=== PATIENT | female | born 1970 | race Caucasian/White ===

== ENCOUNTER 2016-06-12 06:06 | Day surgery (SDC) | payer BC ==
[~2016-06-12] VITALS: Ht 175.3 cm; Wt 69.0 kg
[~2016-06-12 06:06] MED LIST: LISI2.5T PO; OXYC10TA6 PO; SIMV40TA3 PO
[2016-06-12 06:44] VITALS: BP 130/85
[2016-06-12] MEDS ORDERED: LACTATED RINGERS 1,000 ML IV SCH (06:47)
[2016-06-12] MEDS ORDERED: LIDOCAINE 1%, 2ML SQ PRN (07:00)
[2016-06-12] MEDS ORDERED: MIDAZOLAM 1 MG/ML, 2ML ONE (07:09)
[2016-06-12] MEDS ORDERED: FENTANYL PF 250 MCG/5ML ONE (07:09)
[2016-06-12] MEDS ORDERED: CEFAZOLIN 1,000 MG ONE (07:25)
[2016-06-12] MEDS ORDERED: ROCURONIUM 10 MG/ML ONE (07:25)
[2016-06-12] MEDS ORDERED: ONDANSETRON 2MG/ML, 2ML ONE (07:25)
[2016-06-12] MEDS ORDERED: DEXAMETHASONE 4 MG/ML, 1ML ONE (07:25)
[2016-06-12] MEDS ORDERED: PROPOFOL 10 MG/ML, 20ML ONE (07:25)
[2016-06-12] MEDS ORDERED: SUCCINYLCHOLINE 20 MG/ML, 10ML ONE (07:25)
[2016-06-12 07:35] LABS: HCG UR OBC PASS
[2016-06-12] MEDS ORDERED: FENTANYL PF 100 MCG/2ML ONE (08:38)
[2016-06-12] MEDS ORDERED: OXYcodone 5 MG/5 ML ORAL.SOL UDC ONE (08:39)
[2016-06-12] MEDS: FENTANYL PF 100 MCG/2ML IV PRN ×2 (08:40→08:50)
[2016-06-12] MEDS ORDERED: HYDROmorphone 1 MG/ML, 1ML IV PRN (09:00)
[2016-06-12] MEDS ORDERED: OXYcodone 5 MG/5 ML ORAL.SOL UDC PO PRN (09:00)
[2016-06-12] MEDS ORDERED: ONDANSETRON 2MG/ML, 2ML IVPush PRN (09:00)
== END 2016-06-12 10:45 ==
LOC: OUT 06:06
PROVIDERS: ATTEND Surgery
DX: C43.72 Malignant melanoma of left lower limb, including hip (principal); I10 Essential (primary) hypertension; E78.00 Pure hypercholesterolemia, unspecified; N28.89 Other specified disorders of kidney and ureter; Z84.1 Family history of disorders of kidney and ureter
CPT/HCPCS: 27339; 81025; 88307; J0330; J0690; J1100; J2250; J2405; J2704; J3010; J3490; J7120